=== PATIENT | female | born 1980 | race Caucasian/White ===

== ENCOUNTER 2018-01-24 05:51 | Inpatient (IN) | payer MEDICAID ==
[2018-01-24] MEDS ORDERED: AZITHROMYCIN INJ 500 MG VIAL IV ONE (06:01)
[2018-01-24] MEDS ORDERED: CEFAZOLIN 1 GM/D5W RTU 1 GM/50 ML RTUPB IV PRN (06:16)
[2018-01-24] MEDS ORDERED: AZITHROMYCIN 500 MG in DEXTROSE 5%-WATER 250 ML IV PRN (06:17)
[2018-01-24 06:28] LABS: APPEARANCE,URINE SLIGHTLY-CLOUDY; BILIRUBIN,URINE NEGATIVE (NEGATIVE); COLOR,URINE YELLOW; GLUCOSE, URINE NEGATIVE (NEGATIVE); KETONES,URINE NEGATIVE (NEGATIVE); LEUKOCYTE ESTERASE,URINE TRACE (NEGATIVE); NITRITE,URINE NEGATIVE (NEGATIVE); PROTEIN,URINE NEGATIVE (NEGATIVE); URINE SPECIFIC GRAVITY 1.011; UROBILINOGEN,URINE NEGATIVE mg/dL (<2.0)
[2018-01-24 06:45] LABS: ABSOLUTE EOSINOPHILS # (AUTO) 0.1 10^3/uL (0.0-0.6); ABSOLUTE NEUT (AUTO) 10.7 10^3/uL (1.7-8.2); BASOPHILS % (AUTO) 0.1 % (0-2); EOSINOPHILS % (AUTO) 0.7 % (0-6); HEMOGLOBIN 12.1 g/dL (12.0-15.5); LYMPHOCYTES % (AUTO) 20.2 % (13-45); MEAN CORPUSCULAR HEMOGLOBIN 31.4 pg (27.0-33.4); MEAN CORPUSCULAR HGB CONC 33.7 g/dL (32.0-36.0); MEAN CORPUSCULAR VOLUME 93 fl (80-97); MONOCYTES % (AUTO) 6.6 % (3-13); PLATELET COUNT 188 10^3/uL (150-450); RED BLOOD COUNT 3.86 10^6/uL (3.72-5.28); RED CELL DISTRIBUTION WIDTH 14.4 % (11.5-14.0); SEGMENTED NEUTROPHILS % (AUTO) 72.4 % (42-78); TOTAL CELLS COUNTED % (AUTO) 100 %; WHITE BLOOD COUNT 14.7 10^3/uL (4.0-10.5)
[2018-01-24 06:50] LABS: URINE AMPHETAMINES SCREEN NEGATIVE; URINE BARBITURATES SCREEN NEGATIVE; URINE BENZODIAZEPINES SCREEN NEGATIVE; URINE COCAINE SCREEN NEGATIVE; URINE MARIJUANA (THC) SCREEN NEGATIVE; URINE METHADONE SCREEN NEGATIVE; URINE PHENCYCLIDINE SCREEN NEGATIVE
[2018-01-24] MEDS ORDERED: OXYTOCIN 10 UNIT/ML VIAL ONE (07:20)
[2018-01-24] MEDS ORDERED: FENTANYL CITRATE INJ/PF 100 MCG/2 ML AMPUL ONE (07:20)
[2018-01-24] MEDS ORDERED: KETOROLAC TROMETHAMINE INJ/PF 30 MG/1 ML SDV ONE (07:20)
[2018-01-24] MEDS ORDERED: ACETAMINOPHEN 1,000 MG/100 ML RTUPB IV ONE (07:21)
[2018-01-24] MEDS ORDERED: MIDAZOLAM 2 MG/2 ML INJ ONE (07:21)
[2018-01-24] MEDS ORDERED: OXYTOCIN/NORMAL SALINE 20 UNIT/1,000 ML RTUINJ ONE (07:21)
[2018-01-24] MEDS ORDERED: ONDANSETRON HCL INJ/PF 4 MG/2 ML SDV ONE ×2 (07:21→09:22)
[2018-01-24] MEDS ORDERED: EPHEDRINE SULFATE INJ 50 MG/1 ML AMPULE ONE (07:21)
[2018-01-24] MEDS ORDERED: BUPIVACAINE HCL/DEX-WATER/PF 15 MG/2 ML AMPULE ONE (07:21)
[2018-01-24] MEDS ORDERED: FENTANYL CITRATE INJ/PF 100 MCG/2 ML AMPUL IV PRN ×3 (08:25)
[2018-01-24] MEDS ORDERED: ONDANSETRON HCL INJ/PF 4 MG/2 ML SDV IV PRN (08:25)
[2018-01-24] MEDS ORDERED: PROMETHAZINE HCL INJ 25 MG/1 ML VIAL IV PRN ×3 (08:25→08:49)
[2018-01-24] MEDS ORDERED: DIPHENHYDRAMINE HCL 50 MG/ML VIAL IV PRN (08:25)
[2018-01-24] MEDS ORDERED: MEPERIDINE HCL/PF INJ 25 MG/1 ML DISP.SYRIN IV PRN (08:25)
[2018-01-24] MEDS ORDERED: OXYCODONE-ACETAMINOPHEN 5-325 MG TABLET PO PRN ×3 (08:25→08:49)
[2018-01-24] MEDS ORDERED: DIPH/PERTUSS(ACELL)/TETANUS VAC/PF 0.5 ML SYR (>=10YO) IM PRN (08:49)
[2018-01-24] MEDS ORDERED: OXYTOCIN/NORMAL SALINE 20 UNIT/1,000 ML RTUINJ IV PRN (08:49)
[2018-01-24] MEDS ORDERED: SIMETHICONE 80 MG TAB.CHEW PO PRN (08:49)
[2018-01-24] MEDS ORDERED: ACETAMINOPHEN 325 MG TABLET PO PRN (08:49)
[2018-01-24] MEDS ORDERED: MEASLES,MUMPS&RUBELLA VACC/PF 0.5 ML VIAL SUBCUT PRN (08:49)
[2018-01-24] MEDS ORDERED: PHENYLEPHRINE HCL INJ/PF 10 MG/1 ML SDV ONE (08:57)
[2018-01-24] MEDS ORDERED: OXYCODONE-ACETAMINOPHEN 5-325 MG TABLET ONE (10:10)
[2018-01-24] MEDS: MORPHINE SULFATE 10 MG/ML INJ IM PRN ×3 (11:40→20:34)
--- NOTE | 2018-01-24 11:41 | OPERATIVE REPORT E ---
Operative Report NAME: CELESTINO EVERETT : 1980 AGE: 37Y DATE OF SURGERY: 01/24/2018 ROOM: 225 PREOPERATIVE DIAGNOSES: 1. IUP at term. 2. Repeat section. 3. Desires sterilization. POSTOPERATIVE DIAGNOSES: 1. IUP at term. 2. Repeat section. 3. Desires sterilization. PROCEDURES: 1. Repeat low transverse . 2. Bilateral tubal ligation using Filshie clips. SURGEON: Katherine PEACE M.D. ESTIMATED BLOOD LOSS: Less than 1000 mL. TISSUE REMOVED OR ALTERED: Placenta. ANESTHESIA: Spinal. DESCRIPTION OF PROCEDURE: The patient was placed in a supine position, rolled on her right side, prepped and draped in sterile fashion. A Pfannenstiel incision was made through an existing Pfannenstiel eschar incision and extended through the subcutaneous tissue and to the fascia. Multiple adhesions were encountered from the fascia to the omentum. There were carefully dissected so that the uterus could be visualized. Uterus nicked in midline standard bilaterally. Infant was then delivered through the uterine incision. Nose and mouth suctioned with bulb syringe. Cord was clamped. Infant was passed from the table. Placenta was closed in 2 layers using 0 Vicryl, first a running stitch and the second a Lembert stitch imbricating the first layer. Hemostasis was noted. The right fallopian tube was banded with Filshie clip in the mid portion. The procedure was begun on the left. Both tubes identified through the fimbria *------* banding. Hemostasis again was noted. The fascia was closed with 0 Vicryl. Skin was closed with subcu absorbable tana, then previously closed using interrupted 3-0 *------*. went to nursery, and her urine remained clear throughout the procedure. DICTATING PHYSICIAN: Katherine PEACE M.D. [id number] PHY#: [id number] ID: [id number] JOB#: [id number] ACCT: [id number] cc:Katherine PEACE M.D. >
[2018-01-24] MEDS: DOCUSATE SODIUM 100 MG CAPSULE PO SCH ×2 (11:56→17:35)
[2018-01-24] MEDS: PRENATAL VITAMIN W DHA CAPSULE PO SCH (11:56)
[2018-01-24] MEDS: OXYCODONE-ACETAMINOPHEN 5-325 MG TABLET PO PRN ×2 (13:20→17:35)
[2018-01-25] MEDS: MORPHINE SULFATE 10 MG/ML INJ IM PRN ×2 (01:06→05:46)
[2018-01-25 07:09] LABS: RED BLOOD COUNT 3.66 10^6/uL (3.72-5.28); WHITE BLOOD COUNT 11.4 10^3/uL (4.0-10.5)
[2018-01-25 07:10] LABS: HEMATOCRIT 34.1 % (36.0-47.0); HEMOGLOBIN 11.5 g/dL (12.0-15.5); MEAN CORPUSCULAR HEMOGLOBIN 31.5 pg (27.0-33.4); MEAN CORPUSCULAR HGB CONC 33.9 g/dL (32.0-36.0); MEAN CORPUSCULAR VOLUME 93 fl (80-97); PLATELET COUNT 140 10^3/uL (150-450); RED CELL DISTRIBUTION WIDTH 14.6 % (11.5-14.0)
[2018-01-25] MEDS: PRENATAL VITAMIN W DHA CAPSULE PO SCH (09:18)
[2018-01-25] MEDS: DOCUSATE SODIUM 100 MG CAPSULE PO SCH ×2 (09:18→17:48)
[2018-01-25] MEDS: OXYCODONE-ACETAMINOPHEN 5-325 MG TABLET PO PRN ×4 (09:34→23:34)
[2018-01-25] MEDS: IBUPROFEN 800 MG TABLET PO SCH (12:21)
--- NOTE | 2018-01-25 13:04 | PDOC PROGRESS REPORT ---
Subjective-OB Progress Note for:: 01/25/18 Subjective: Pt c/o pain in lower abd above c/s incision. Ambulatory, regular diet and no difficulty voiding. Reports light bleeding. Physical Exam (OB) Vital Signs: Temp Pulse Resp BP Pulse Ox 98.5 F 94 20 113/64 97 01/25/18 08:11 01/25/18 08:11 01/25/18 08:11 01/25/18 08:11 01/25/18 08:11 Intake & Output 01/24/18 01/25/18 01/26/18 06:59 06:59 06:59 Intake Total 550 Output Total 3425 Balance -2875 Weight 108.635 kg - PIH/Pre-Eclampsia DTR's: 1 + Clonus: Negative Headache: Absent Epigastric Pain: No Visual Changes: No - Dressing Removed: No Incision: Open Closure Type: Steri-Strips Note: abd is edematous, may apply heat, no s/sx of infection, WBC normal today - Bilateral Tubal Ligation Dressing Removed: No Site: Dressing - Lochia Lochia Amount: Moderate 25-50 ml Lochia Color: Rubra/Red - Abdomen Description: Tender, Firm Hernia Present: No Fundal Description: Firm Fundal Height: u/u - u/2 Objective-Diagnostic Laboratory: 01/25/18 06:24 01/25/18 06:24 WBC 11.4 H RBC 3.66 L Hgb 11.5 L Hct 34.1 L MCV 93 MCH 31.5 MCHC 33.9 RDW 14.6 H Plt Count 140 L Assessment and Plan(PN) - Assessment and Plan (1) Status post repeat low transverse section Is this a current diagnosis for this admission?: Yes - Time Spent with Patient Time with patient: Less than 15 minutes Medications reviewed and adjusted accordingly: Yes - Disposition Anticipated Discharge: Home Within: within 24 hours
[2018-01-25] MEDS: KETOROLAC TROMETHAMINE INJ/PF 30 MG/1 ML SDV IV SCH ×2 (14:58→21:12)
[2018-01-26] MEDS: IBUPROFEN 800 MG TABLET PO SCH ×4 (05:31→11:56)
[2018-01-26] MEDS: KETOROLAC TROMETHAMINE INJ/PF 30 MG/1 ML SDV IV SCH (05:38)
--- NOTE | 2018-01-26 09:38 | PDOC DISCHARGE SUMMARY ---
Final Diagnosis Discharge Date: 01/26/18 - Final Diagnosis (1) Status post repeat low transverse section Is this a current diagnosis for this admission?: Yes Discharge Data - Discharge Medication Home Medications: Duloxetine HCl [Cymbalta] 1 tab PO DAILY 08/18/15 Docusate Sodium [Colace 100 mg Capsule] 100 mg PO BID #30 capsule 08/20/15 Ferrous Sulfate 325 mg PO BID #60 tablet. 08/20/15 Ibuprofen [Motrin 800 mg Tablet] 800 mg PO Q6 #30 tablet 08/20/15 Oxycodone HCl/Acetaminophen [Percocet 5-325 mg Tablet] 2 tab PO Q4HP PRN #30 tablet 08/20/15 Reason(s) for Admission: Ceasarean Section-Repeat, Tubal Ligation - Diagnosis Test Laboratory: Temp Pulse Resp BP Pulse Ox 98.5 F 94 20 113/64 97 01/25/18 08:11 01/25/18 08:11 01/25/18 08:11 01/25/18 08:11 01/25/18 08:11 01/24/18 01/24/18 01/25/18 05:55 06:25 06:24 RBC 3.86 3.66 L Hgb 12.1 11.5 L Hct 36.0 34.1 L Urine Opiates Screen NEGATIVE - Discharge information/Instructions Discharge Activity: Balance Activity w/Rest, No Lifting Over 10 Pounds, No Lifting/Push/Pulling, Pelvic Rest, No tub bath Discharge Diet: Regular Disposition: HOME, SELF-CARE Follow up with: [facility] in: 4, Days
[2018-01-26] MEDS: PRENATAL VITAMIN W DHA CAPSULE PO SCH (09:41)
[2018-01-26] MEDS: OXYCODONE-ACETAMINOPHEN 5-325 MG TABLET PO PRN (09:42)
[2018-01-26] MEDS: DOCUSATE SODIUM 100 MG CAPSULE PO SCH (09:42)
[2018-01-26 11:51] VITALS: BP 114/65
== END 2018-01-26 14:05 | disposition home or self-care (01) | DRG 766 ==
LOC: 2S 05:51
PROVIDERS: ADMIT Obstetrics & Gynecology Gynecology; ATTEND Obstetrics & Gynecology Gynecology
PROC: 0UL70CZ Occlusion of Bilateral Fallopian Tubes with Extraluminal Device, Open Approach (ICD-10-PCS; 2018-01-24)
PROC: 10D00Z1 Extraction of Products of Conception, Low, Open Approach (ICD-10-PCS; principal; 2018-01-24 07:45)
DX: O34.211 Maternal care for low transverse scar from previous cesarean delivery (principal); O24.429 Gestational diabetes mellitus in childbirth, unspecified control; N85.8 Other specified noninflammatory disorders of uterus; O99.344 Other mental disorders complicating childbirth; F41.8 Other specified anxiety disorders; Z3A.00 Weeks of gestation of pregnancy not specified; Z37.0 Single live birth; Z30.2 Encounter for sterilization
CPT/HCPCS: 1961; 36415; 59025; 80307; 81001; 82962; 85025; 85027; 86850; 86900; 86901; 94799; J0131; J0456; J1885; J2250; J2270; J2370; J2405; J2590; J3010; J3490

== ENCOUNTER 2018-03-19 15:49 | Emergency (ER) | payer MEDICAID ==
[2018-03-19] MEDS ORDERED: DEXAMETHASONE SOD PHOS INJ 10 MG/1 ML VIAL IM ONE (17:10)
[2018-03-19] MEDS ORDERED: KETOROLAC TROMETHAMINE 60 MG/2 ML SDV IM ONE (17:10)
[2018-03-19] MEDS ORDERED: LIDOCAINE 5% (700 MG) TRANSDERMAL ADH..PATCH TP ONE (17:13)
--- NOTE | 2018-03-19 17:37 | RADIOLOGY REPORT (SQ) ---
EXAM DESCRIPTION: L SPINE WHOLE COMPLETED DATE/TIME: 03/19/2018 5:28 pm REASON FOR STUDY: low back pain COMPARISON: 02/09/2012 NUMBER OF VIEWS: Five views including obliques. TECHNIQUE: AP, lateral, oblique, and sacral radiographic images acquired of the lumbar spine. LIMITATIONS: None. FINDINGS: MINERALIZATION: Normal. SEGMENTATION: Normal. No transitional anatomy. ALIGNMENT: Normal. VERTEBRAE: Maintained height. No fracture or worrisome bone lesion. DISCS: Preserved height. No significant osteophytes or end plate irregularity. POSTERIOR ELEMENTS: Pedicles and facets are intact. No pars defect or posterior arch defects. HARDWARE: None in the spine. PARASPINAL SOFT TISSUES: Normal. PELVIS: Intact as visualized. No fractures or worrisome bone lesions. SI joints intact. OTHER: No other significant finding. IMPRESSION: NORMAL 5 VIEW LUMBAR SPINE. TECHNICAL DOCUMENTATION: JOB ID: [id number] [employer]- All Rights Reserved Reading location - IP/workstation name: [email or web address]
--- NOTE | 2018-03-19 17:48 | ER Document Report ---
ED Neck/Back Problem - General Chief Complaint: Back Pain Stated Complaint: LOWER BACK PAIN Time Seen by Provider: 03/19/18 16:56 Mode of Arrival: Ambulatory Information source: Patient Notes: 37-year-old female presented to ED for complaint of chronic back pain. She states is gotten worse since her and January. She states she has had pain since she was a teenager. She states it was worse during her and after her delivery. She states she is never had this x-ray of her spine and she just wanted to make sure there was not any problems with this. Patient is alert and oriented respirations regular and unlabored speaking in full sentences. Patient is morbidly obese. TRAVEL OUTSIDE OF THE [place] IN LAST 30 DAYS: No - HPI Patient complains to provider of: Lower back Onset: Other - Since she was a teenager Onset: Chronic Timing: Still present Quality of pain: Achy, Sharp Severity: Severe Pain Level: 5 Recent injury: No Associated symptoms: Like prior neck/back pain, Lower back pain. denies: Incontinence, Motor loss, Numbness/tingling, Radiation to arm, Radiation to chest, Radiation to leg, Sensory loss, Sweaty, Unable to urinate, Upper back pain Exacerbated by: Movement of neck, Sitting position Relieved by: Nothing Similar symptoms previously: Yes Recently seen / treated by doctor: No - Related Data Allergies/Adverse Reactions: clarithromycin [From Biaxin] Allergy (Intermediate, Verified 03/19/18 15:52) VOMITING clindamycin [Clindamycin] Allergy (Intermediate, Verified 03/19/18 15:52) rash erythromycin base [Erythromycin Base] Allergy (Intermediate, Verified 03/19/18 15:52) rash Penicillins Allergy (Intermediate, Verified 03/19/18 15:52) rash Past Medical History - General Information source: Patient - Social History Smoking Status: Current Every Day Smoker Cigarette use (# per day): Yes - Pack per day Chew tobacco use (# tins/day): No - 4 minutes Smoking Education Provided: Yes Frequency of alcohol use: None Drug Abuse: None Occupation: [employer] Lives with: Family Family History: Reviewed & Not Pertinent Patient has suicidal ideation: No Patient has homicidal ideation: No - Past Medical History Cardiac Medical History: Reports: None Pulmonary Medical History: Reports: None EENT Medical History: Reports: None Neurological Medical History: Reports: None Endocrine Medical History: Reports: None Renal/ Medical History: Reports: None Malignancy Medical History: Reports: None GI Medical History: Reports: Hx Gastroesophageal Reflux Disease Musculoskeletal Medical History: Reports Other - Chronic back pain Skin Medical History: Reports None Psychiatric Medical History: Reports: Hx Depression Traumatic Medical History: Reports: None Infectious Medical History: Reports: None Past Surgical History: Reports: Hx Section - X2, Hx Cholecystectomy, Hx Tonsillectomy, Other - Immunizations Immunizations up to date: Yes Hx Diphtheria, Pertussis, Tetanus Vaccination: Yes Review of Systems - Review of Systems Constitutional: No symptoms reported EENT: No symptoms reported Cardiovascular: No symptoms reported Respiratory: No symptoms reported Gastrointestinal: No symptoms reported Genitourinary: No symptoms reported Female Genitourinary: No symptoms reported Musculoskeletal: Back pain, Muscle pain, Muscle stiffness Skin: No symptoms reported Hematologic/Lymphatic: No symptoms reported Neurological/Psychological: No symptoms reported -: Yes All other systems reviewed and negative Physical Exam - Vital signs Vitals: Temp Pulse Resp BP Pulse Ox 97.9 F 97 15 129/76 H 96 03/19/18 15:54 03/19/18 15:54 03/19/18 15:54 03/19/18 15:54 03/19/18 15:54 Interpretation: Normal - General General appearance: Appears well, Alert - HEENT Head: Normocephalic, Atraumatic Eyes: Normal Pupils: PERRL - Respiratory Respiratory status: No respiratory distress Chest status: Nontender Breath sounds: Normal Chest palpation: Normal - Cardiovascular Rhythm: Regular Heart sounds: Normal auscultation Murmur: No - Abdominal Inspection: Normal Distension: No distension Bowel sounds: Normal Tenderness: Nontender Organomegaly: No organomegaly - Back Back: Normal, Tender. No: Deformity/step-off, CVA tenderness, Vertebra tenderness, Scars, Scoliosis, Wounds - Extremities General upper extremity: Normal inspection, Nontender, Normal color, Normal ROM , Normal temperature General lower extremity: Normal inspection, Nontender, Normal color, Normal ROM , Normal temperature, Normal weight bearing. No: Yudy's sign - Neurological Neuro grossly intact: Yes Cognition: Normal Orientation: AAOx4 [place] Coma Scale Eye Opening: Spontaneous [place] Coma Scale Verbal: Oriented Daniel Coma Scale Motor: Obeys Commands [place] Coma Scale Total: 15 Speech: Normal Motor strength normal: LUE, RUE, LLE, RLE Sensory: Normal - Psychological Associated symptoms: Normal affect, Normal mood - Skin Skin Temperature: Warm Skin Moisture: Dry Skin Color: Normal Course - Re-evaluation Re-evalutation: 03/19/18 21:42 After performing a Medical Screening Examination, I estimate there is LOW risk for EXPANDING OR RUPTURED ABDOMINAL AORTIC ANEURYSM, CAUDA EQUINA SYNDROME, EPIDURAL MASS LESION, or HERNIATED DISK CAUSING SEVERE SPINAL STENOSIS, thus I consider the discharge disposition reasonable. I have reevaluated this patient multiple times and no significant life threatening changes are noted. The patient and I have discussed the diagnosis and risks, and we agree with discharging home and close follow-up. We also discussed returning to the Emergency Department immediately if new or worsening symptoms occur with the understanding that symptoms and presentations can change. We have discussed the symptoms which are most concerning (e.g., saddle anesthesia, urinary or bowel incontinence or retention, changing or worsening pain) that necessitate immediate return. - Vital Signs Vital signs: Temp Pulse Resp BP Pulse Ox 98.1 F 81 16 116/74 97 03/19/18 17:57 03/19/18 17:57 03/19/18 17:57 03/19/18 17:57 03/19/18 17:57 - Diagnostic Test Radiology reviewed: Image reviewed, Reports reviewed Discharge - Discharge Clinical Impression: Chronic low back pain Qualifiers: Back pain laterality: bilateral Sciatica presence: without sciatica Qualified Code(s): M54.5 - Low back pain; G89.29 - Other chronic pain; G89.29 - Other chronic pain Condition: Stable Disposition: HOME, SELF-CARE Additional Instructions: Chronic Back Pain Chronic back pain (pain persisting longer than three months) is a common problem. A medical evaluation can look for herniated disc, arthritis, osteoporosis, tumors, and infections. But at least half the time, there's no obvious treatable cause. Anxiety and depression tend to worsen back pain. Ibuprofen or other anti-inflammatory medicine can help. A heating pad, used for 15-20 minutes at a time, can ease pain. For this type of back pain, narcotic medicines should be avoided. Muscle relaxers are rarely helpful unless you're having spasms. Activity is important. Find an aerobic exercise program that your back can tolerate. Too much rest makes back pain worse. Specific back exercises are usually prescribed to strengthen the back and abdominal muscles. Often, a physical therapist can help. Avoid heavy lifting, working while bent over, or standing with both knees straight. Most back pain patients do better with a firm mattress. If new symptoms of a "herniated disc" (radiation of pain, numbness, or tingling down the back of the leg or weakness in the leg) occur, you should be re-examined. ICE PACKS: Apply ice packs frequently against the painful area. Many different schedules are recommended, such as "20 minutes on, 20 minutes off" or "one hour ice, two hours rest." If you need to work, you may need to go longer between ice treatments. You should plan to have the area ice packed AT LEAST one fourth of the time. The ice should be applied over the wrap, tape, or splint, or over a layer of cloth -- not directly against the skin. Some ice bags have a built-in cloth and can be put directly on the skin. WARM PACKS: After approximately two days, apply gentle heat (such as a heating pad or hot water bottle) for about 20 to 30 minutes about every two hours -- at least four times daily. Warmth and elevation will help you make a more rapid recovery , and will ease the pain considerably. Do not use HOT heat, and never apply heat for longer than 30 minutes. The continuous heat can invisibly damage skin and muscles -- even when no burn is seen on the surface. Damaged muscles can make you MORE sore. Toradol Injection You have been given an injection of ketorolac tromethamine (Toradol). This is an excellent, safe drug for pain control. It also has potent antiinflammatory action. You should have significant pain relief within about one hour. Toradol is not addicting and is non-sedating. It does not interfere with driving or work. Call or return if you develop itching, hives, shortness of breath, or rash. STEROID MEDICATION: You have been given an injection of medicine of the cortisone/steroid class. This medication is used to control inflammation or allergy. It is often continued as a pill for a short period of time, until the acute process subsides. There are usually no side effects from short-term use of cortisone-like medications. Some persons feel an increased sense of well-being and are not sleepy at bedtime. Long-term use of cortisone medications is best avoided, unless required for a severe condition. If your condition does not remit, or relapses after the course of corticosteroid medication, you should consult your physician. Stretching Exercises for the Back The physician has recommended that you begin stretching exercises for your back. These are often used even while the back is painful. However, you should notify the physician if the activities seem to increase your pain. PELVIC TILT: Lie flat on your back with knees bent. Tighten your stomach and buttock muscles so it flattens your lower back against the floor. Hold 10 seconds. Repeat 10 times, twice daily. KNEE RAISE: Lying on the back with knees bent, raise one knee to your chest, then the other. Hold both knees against the chest 10 seconds, then lower one knee at a time. Repeat 10 times, twice daily. PARTIAL TRUNK RAISE: Lie face down, arms at your sides. Keeping your waist on the floor, use your arms raise your chest up. Support yourself on your elbows for 30 seconds. Repeat twice daily, increasing the time to two minutes as you recover. FOLLOW-UP CARE: If you have been referred to a physician for follow-up care, call the physician s office for an appointment as you were instructed or within the next two days. If you experience worsening or a significant change in your symptoms, notify the physician immediately or return to the Emergency Department at any time for re-evaluation. Prescriptions: Naproxen 500 mg PO BIDP PRN #14 tablet PRN Reason: Forms: Elevated Blood Pressure, Smoking Cessation Education Referrals: SMITA PEACE MD [Primary Care Provider] - Follow up as needed
[2018-03-19 17:58] VITALS: BP 116/74
== END 2018-03-19 17:57 | disposition home or self-care (01) ==
LOC: ER 15:49
DX: M54.5 Low back pain (principal); G89.29 Other chronic pain; Z98.890 Other specified postprocedural states; E66.01 Morbid (severe) obesity due to excess calories; F17.210 Nicotine dependence, cigarettes, uncomplicated; Z68.41 Body mass index [BMI] 40.0-44.9, adult; Z88.1 Allergy status to other antibiotic agents; Z88.0 Allergy status to penicillin
CPT/HCPCS: 99406; 99283; 96372; 72110; J1885; J3490; J1100

== ENCOUNTER → 2018-06-06 | Outpatient (CLI) | payer MEDICAID ==
--- NOTE | 2018-06-06 08:24 | RADIOLOGY REPORT (SQ) ---
EXAM DESCRIPTION: U/S ABDOMEN LIMITED W/O DOP COMPLETED DATE/TIME: 06/06/2018 8:11 am REASON FOR STUDY: BILATERAL LOWER QUAD ABD MASS (R19.04) R19.04 LEFT LOWER QUADRANT ABDOMINAL SWELL ING, MASS AND LUMP COMPARISON: None. TECHNIQUE: Dynamic and static grayscale images acquired of the abdomen and recorded on PACS. Additio nal selected color Doppler and spectral images recorded. Focused exam over the anterior abdominal wa ll in the area of pain LIMITATIONS: None. FINDINGS: Patient indicates pain and palpable abnormality over the midline lower anterior abdominal wall suprapubic region Ultrasound of this area demonstrates a moderate size ventral hernia containing peristalsing bowel loo ps. Abdominal wall defect appears to measure 10 to 12 cm in greatest diameter. IMPRESSION: Lower anterior abdominal wall ventral hernia containing peristalsing bowel loops TECHNICAL DOCUMENTATION: JOB ID: [id number] [employer]- All Rights Reserved Reading location - IP/workstation name: [email or web address]
== END ==
LOC: RAD 07:25
PROVIDERS: ATTEND Nurse Practitioner Family
DX: K43.6 Other and unspecified ventral hernia with obstruction, without gangrene (principal)
CPT/HCPCS: 76705

== ENCOUNTER 2018-06-12 17:14 | Emergency (ER) | payer MEDICAID ==
[2018-06-12] MEDS ORDERED: ONDANSETRON 4 MG TAB.RAPDIS PO ONE (19:50)
--- NOTE | 2018-06-12 19:52 | ER Document Report ---
ED Medical Screen (RME) - General Chief Complaint: Abdominal Pain Stated Complaint: ABDOMINAL PAIN Time Seen by Provider: 06/12/18 19:50 Notes: 37-year-old female with history of ventral hernia that comes to the emergency department for chief complaint of pain, periodic vomiting, she states she was sent for an ultrasound but the hernia was too big to evaluate, she states she was supposed to get a CAT scan but this has not been set up yet. She smokes, she has had cholecystectomy and 2 C-sections. She has been able to eat and has moved her bowels today. She only vomited once today. TRAVEL OUTSIDE OF THE [place] IN LAST 30 DAYS: No - Related Data Allergies/Adverse Reactions: clarithromycin [From Biaxin] Allergy (Intermediate, Verified 03/19/18 15:52) VOMITING clindamycin [Clindamycin] Allergy (Intermediate, Verified 03/19/18 15:52) rash erythromycin base [Erythromycin Base] Allergy (Intermediate, Verified 03/19/18 15:52) rash Penicillins Allergy (Intermediate, Verified 03/19/18 15:52) rash Past Medical History Renal/ Medical History: Denies: Hx Peritoneal Dialysis GI Medical History: Reports: Hx Gastroesophageal Reflux Disease Psychiatric Medical History: Reports: Hx Depression Past Surgical History: Reports: Hx Section - X2, Hx Cholecystectomy, Hx Tonsillectomy, Other - Immunizations Immunizations up to date: Yes Hx Diphtheria, Pertussis, Tetanus Vaccination: Yes History of Influenza Vaccine for 03/2017 - 08/2017 Season: No Physical Exam - Vital signs Vitals: Temp Pulse Resp BP Pulse Ox 98.7 F 90 18 140/86 H 96 06/12/18 17:20 06/12/18 17:20 06/12/18 17:20 06/12/18 17:20 06/12/18 17:20 - Abdominal Tenderness: Other - Large lower ventral hernia, the area is not rigid or erythematous, there is mild generalized tenderness over the area in limited sitting position exam. Course - Re-evaluation Re-evalutation: I have greeted and performed a rapid initial assessment of this patient. A comprehensive ED assessment and evaluation of the patient, analysis of test results and completion of the medical decision making process will be conducted by additional ED providers. - Vital Signs Vital signs: Temp Pulse Resp BP Pulse Ox 98.7 F 90 18 140/86 H 96 06/12/18 17:20 06/12/18 17:20 06/12/18 17:20 06/12/18 17:20 06/12/18 17:20 Doctor's Discharge - Discharge Referrals: ANTONELLA LEE FNP-C [Primary Care Provider] - Follow up as needed
[2018-06-12 20:20] LABS: APPEARANCE,URINE SLIGHTLY-CLOUDY; BILIRUBIN,URINE NEGATIVE (NEGATIVE); COLOR,URINE YELLOW; GLUCOSE, URINE NEGATIVE (NEGATIVE); KETONES,URINE NEGATIVE (NEGATIVE); LEUKOCYTE ESTERASE,URINE NEGATIVE (NEGATIVE); NITRITE,URINE NEGATIVE (NEGATIVE); PROTEIN,URINE NEGATIVE (NEGATIVE); URINE SPECIFIC GRAVITY 1.014; UROBILINOGEN,URINE NEGATIVE mg/dL (<2.0)
[2018-06-12] MEDS ORDERED: MORPHINE SULFATE 10 MG/ML INJ IV ONE (20:36)
--- NOTE | 2018-06-12 20:40 | ER Document Report ---
ED General - General Chief Complaint: Abdominal Pain Stated Complaint: ABDOMINAL PAIN Time Seen by Provider: 06/12/18 19:50 TRAVEL OUTSIDE OF THE [place] IN LAST 30 DAYS: No - HPI Notes: Patient is a 37-year-old female that presents to the emergency department for chief complaint of ventral hernia and melanotic stools. Patient reports she has had a ventral hernia for the last 4 months since her section. She has been seen as an outpatient by the [facility] who ordered an ultrasound last week. She states that the instrument technologist told her that she would need a CT scan for further evaluation, she has not obtain the scan yet. Today she states she started having a large amount of melanotic stools. The hernia has significantly increased in pain to the point that she has vomited 2 times. She denies any coffee-ground emesis. She denies any fevers or chills. She has not taken any medication at home for her pain. Past Medical History: Gestational diabetes, anxiety Past Surgical History: Social History: Denies drugs alcohol and tobacco Family History: Reviewed and noncontributory for presenting illness Allergies: Reviewed, see documented allergy list. REVIEW OF SYSTEMS: CONSTITUTIONAL : No fever No chills No diaphoresis No recent illness EENT: No vision changes No congestion No sore throat CARDIOVASCULAR: No chest pain No palpitations RESPIRATORY: No shortness of breath No cough No difficulty breathing GASTROINTESTINAL: abdominal pain nausea vomiting No diarrhea Melanotic stool GENITOURINARY: No dysuria No hematuria No difficulty urinating MUSCULOSKELETAL: No back pain No leg pain No arm pain SKIN: No rashes No lesions LYMPHATIC: No swollen, enlarged glands. NEUROLOGICAL: No lightheadedness No headache No weakness No paresthesias PSYCHIATRIC: No anxiety No depression PHYSICAL EXAMINATION: Vital signs reviewed, nursing noted reviewed. GENERAL: Well-appearing, well-nourished and in no acute distress. HEAD: Atraumatic, normocephalic. EYES: Eyes appear normal, extraocular movements intact, sclera anicteric, conjunctiva are normal. ENT: nares patent, oropharynx clear without exudates. Moist mucous membranes. NECK: Normal range of motion, supple without lymphadenopathy LUNGS: Breath sounds clear to auscultation bilaterally and equal. No wheezes rales or rhonchi. HEART: Regular rate and rhythm without murmurs ABDOMEN: Soft, large ventral hernia just inferior to umbilicus that is tender to palpation and not reducible. No rebound, guarding, or rigidity. No masses appreciated. EXTREMITIES: Nontender, good range of motion, no pitting or edema. NEUROLOGICAL: No focal neurological deficits. Moves all extremities spontaneously Motor and sensory grossly intact on exam. PSYCH: Normal mood, normal affect. SKIN: Warm, Dry, normal turgor, no rashes or lesions noted on exposed skin - Related Data Allergies/Adverse Reactions: clarithromycin [From Biaxin] Allergy (Intermediate, Verified 03/19/18 15:52) VOMITING clindamycin [Clindamycin] Allergy (Intermediate, Verified 03/19/18 15:52) rash erythromycin base [Erythromycin Base] Allergy (Intermediate, Verified 03/19/18 15:52) rash Penicillins Allergy (Intermediate, Verified 03/19/18 15:52) rash Past Medical History - Social History Smoking Status: Current Every Day Smoker Family History: Reviewed & Not Pertinent Patient has suicidal ideation: No Patient has homicidal ideation: No Renal/ Medical History: Denies: Hx Peritoneal Dialysis GI Medical History: Reports: Hx Gastroesophageal Reflux Disease Psychiatric Medical History: Reports: Hx Depression Past Surgical History: Reports: Hx Section - X2, Hx Cholecystectomy, Hx Tonsillectomy, Other - Immunizations Immunizations up to date: Yes Hx Diphtheria, Pertussis, Tetanus Vaccination: Yes Physical Exam - Vital signs Vitals: Temp Pulse Resp BP Pulse Ox 98.7 F 90 18 140/86 H 96 06/12/18 17:20 06/12/18 17:20 06/12/18 17:20 06/12/18 17:20 06/12/18 17:20 Course - Re-evaluation Re-evalutation: 06/12/18 23:25 Vitals reviewed. Nursing notes reviewed. Patient's lab work shows a mild elevation of her lipase however she is not having any epigastric tenderness and there is no pancreatitis on CT scan. The remainder of her blood work is unrem arkable. CT shows a large diastases rectus containing bowel. Patient has a negative lactate. There is no strangulation or incarceration. I discussed her results with Dr. Andrew who recommends outpatient follow-up. She will be referred to general surgery for further management if her pain continues. She is stable at discharge. Laboratory 06/12/18 06/12/18 06/12/18 19:55 20:36 20:36 WBC 6.4 RBC 4.77 Hgb 14.5 Hct 42.9 MCV 90 MCH 30.5 MCHC 33.9 RDW 15.6 H Plt Count 246 Seg Neutrophils % 54.1 Lymphocytes % 35.0 Monocytes % 6.7 Eosinophils % 3.9 Basophils % 0.3 Absolute Neutrophils 3.5 Absolute Lymphocytes 2.2 Absolute Monocytes 0.4 Absolute Eosinophils 0.2 Absolute Basophils 0.0 PT INR Sodium 139.7 Potassium 4.2 Chloride 107 Carbon Dioxide 28 Anion Gap 5 BUN 12 Creatinine 0.68 Est GFR ( Amer) > 60 Est GFR (Non-Af Amer) > 60 Glucose 87 Lactic Acid Calcium 9.1 Total Bilirubin 0.3 Direct Bilirubin 0.2 Neonat Total Bilirubin Not Reportable Neonat Direct Bilirubin Not Reportable Neonat Indirect Bili Not Reportable AST 23 ALT 32 Alkaline Phosphatase 75 Total Protein 6.3 Albumin 3.8 Lipase 329.1 H Urine Color YELLOW Urine Appearance SLIGHTLY-CLOUDY Urine pH 5.0 Ur Specific Tinnie 1.014 Urine Protein NEGATIVE Urine Glucose (UA) NEGATIVE Urine Ketones NEGATIVE Urine Blood NEGATIVE Urine Nitrite NEGATIVE Urine Bilirubin NEGATIVE Urine Urobilinogen NEGATIVE Ur Leukocyte Esterase NEGATIVE Urine WBC (Auto) 7 Urine RBC (Auto) 1 Urine Bacteria (Auto) TRACE Squamous Epi Cells Auto 1 Urine Mucus (Auto) RARE Urine Ascorbic Acid NEGATIVE Urine HCG, Qual NEGATIVE 06/12/18 06/12/18 20:36 22:30 WBC RBC Hgb Hct MCV MCH MCHC RDW Plt Count Seg Neutrophils % Lymphocytes % Monocytes % Eosinophils % Basophils % Absolute Neutrophils Absolute Lymphocytes Absolute Monocytes Absolute Eosinophils Absolute Basophils PT 13.3 INR 0.96 Sodium Potassium Chloride Carbon Dioxide Anion Gap BUN Creatinine Est GFR ( Amer) Est GFR (Non-Af Amer) Glucose Lactic Acid < 0.5 L Calcium Total Bilirubin Direct Bilirubin Neonat Total Bilirubin Neonat Direct Bilirubin Neonat Indirect Bili AST ALT Alkaline Phosphatase Total Protein Albumin Lipase Urine Color Urine Appearance Urine pH Ur Specific Tinnie Urine Protein Urine Glucose (UA) Urine Ketones Urine Blood Urine Nitrite Urine Bilirubin Urine Urobilinogen Ur Leukocyte Esterase Urine WBC (Auto) Urine RBC (Auto) Urine Bacteria (Auto) Squamous Epi Cells Auto Urine Mucus (Auto) Urine Ascorbic Acid Urine HCG, Qual Abdomen/Pelvis CT 06/12/18 00:00 IMPRESSION: Diastases recti containing loops of large and small bowel, as well as the appendix. However no evidence for obstruction. Negative for acute intra-abdominal/pelvic process. TECHNICAL DOCUMENTATION: Quality ID # 436: Final reports with documentation of one or more dose reduction techniques (e.g., Automated exposure control, adjustment of the mA and/or kV according to patient size, use of iterative reconstruction technique) copyright 2011 [employer]- All Rights Reserved - Vital Signs Vital signs: Temp Pulse Resp BP Pulse Ox 98.7 F 90 18 140/86 H 96 06/12/18 17:20 06/12/18 17:20 06/12/18 17:20 06/12/18 17:20 06/12/18 17:20 - Laboratory Result Diagrams: 06/12/18 20:36 06/12/18 20:36 Laboratory results interpreted by me: 06/12/18 06/12/18 06/12/18 20:36 20:36 22:30 RDW 15.6 H Lactic Acid < 0.5 L Lipase 329.1 H Discharge - Discharge Clinical Impression: Diastasis of rectus abdominis Abdominal pain Qualifiers: Abdominal location: generalized Qualified Code(s): R10.84 - Generalized abdominal pain Condition: Stable Disposition: HOME, SELF-CARE Instructions: Abdominal Pain ([facility]) Additional Instructions: Please return to the emergency department if you have any worsening, or concern of your symptoms. Please return to the emergency department if you develop chest pain, difficulty breathing, severe abdominal pain, or ongoing vomiting. Please follow-up with your primary care physician in 2-3 days and any other recommended physicians. If prescribed, take all medications as directed. If you have any questions or concerns do not hesitate to return the emergency department for evaluation. You have diastases rectus which is a separation of your abdominal muscles, if this area continues to be painful he may require surgery to repair it. You do not require surgery today. Please follow-up with either the general surgeon provided or one referred to you by your primary care doctor for reevaluation. Referrals: ANTONELLA LEE FNP-C [Primary Care Provider] - Follow up in 3-5 days ROSINA ANDREW MD [ACTIVE STAFF] - Follow up as needed
[2018-06-12 20:52] LABS: ABSOLUTE EOSINOPHILS # (AUTO) 0.2 10^3/uL (0.0-0.6); ABSOLUTE LYMPHOCYTES (AUTO) 2.2 10^3/uL (0.5-4.7); ABSOLUTE MONOCYTES (AUTO) 0.4 10^3/uL (0.1-1.4); ABSOLUTE NEUT (AUTO) 3.5 10^3/uL (1.7-8.2); BASOPHILS % (AUTO) 0.3 % (0-2); EOSINOPHILS % (AUTO) 3.9 % (0-6); HEMATOCRIT 42.9 % (36.0-47.0); HEMOGLOBIN 14.5 g/dL (12.0-15.5); MEAN CORPUSCULAR HEMOGLOBIN 30.5 pg (27.0-33.4); MEAN CORPUSCULAR HGB CONC 33.9 g/dL (32.0-36.0); MEAN CORPUSCULAR VOLUME 90 fl (80-97); MONOCYTES % (AUTO) 6.7 % (3-13); PLATELET COUNT 246 10^3/uL (150-450); RED BLOOD COUNT 4.77 10^6/uL (3.72-5.28); RED CELL DISTRIBUTION WIDTH 15.6 % (11.5-14.0); SEGMENTED NEUTROPHILS % (AUTO) 54.1 % (42-78); TOTAL CELLS COUNTED % (AUTO) 100 %; WHITE BLOOD COUNT 6.4 10^3/uL (4.0-10.5)
[2018-06-12 21:06] LABS: INTERNATIONAL RATION (INR) 0.96; PROTHROMBIN TIME 13.3 SEC (11.4-15.4)
[2018-06-12 21:16] LABS: ALANINE AMINOTRANSFERASE 32 U/L (9-52); ALBUMIN 3.8 g/dL (3.5-5.0); ALKALINE PHOSPHATASE 75 U/L (38-126); ANION GAP 5 (5-19); ASPARTATE AMINO TRANSFERASE 23 U/L (14-36); BILIRUBIN,DIRECT 0.2 mg/dL (0.0-0.4); BILIRUBIN,TOTAL 0.3 mg/dL (0.2-1.3); BLOOD UREA NITROGEN 12 mg/dL (7-20); CALCIUM 9.1 mg/dL (8.4-10.2); CARBON DIOXIDE 28 mmol/L (22-30); CHLORIDE 107 mmol/L (98-107); GLUCOSE 87 mg/dL (75-110); LIPASE 329.1 U/L (23-300); POTASSIUM 4.2 mmol/L (3.6-5.0); SODIUM 139.7 mmol/L (137-145); TOTAL PROTEIN 6.3 g/dL (6.3-8.2)
--- NOTE | 2018-06-12 23:05 | RADIOLOGY REPORT (SQ) ---
EXAM DESCRIPTION: CT ABDOMEN PELVIS WITH IV CONTRAST COMPLETED DATE/TME: 06/12/2018 00:00 CLINICAL HISTORY: 37 years, Female, abd pain, vomiting, eval hernia COMPARISON: Ultrasound 06/06/2018. TECHNIQUE: 370 Images stored on PACS. All CT scanners at this facility use dose modulation, iterative reconstruction, and/or weight based dosing when appropriate to reduce radiation dose to as low as reasonably achievable (ALARA). [facility]: Dose Right [facility]: CareDose [facility]: Dose Right [facility]: Teradose 4D [facility]: [employer] LIMITATIONS: None. FINDINGS: Limited evaluation of the lung bases is unremarkable. Osseous structures are grossly intact. The liver, spleen, adrenal glands, pancreas, kidneys are unremarkable. Status post cholecystectomy. Diastases recti. Contrast-filled loops of large and small bowel extend through the midline anterior abdominal wall defect/diastases however no evidence for obstruction. No free air or free fluid. Tubal ligation clips. The cecum and appendix extends through the anterior abdominal wall defect, and have an unremarkable appearance. IMPRESSION: Diastases recti containing loops of large and small bowel, as well as the appendix. However no evidence for obstruction. Negative for acute intra-abdominal/pelvic process. TECHNICAL DOCUMENTATION: Quality ID # 436: Final reports with documentation of one or more dose reduction techniques (e.g., Automated exposure control, adjustment of the mA and/or kV according to patient size, use of iterative reconstruction technique) copyright 2011 [employer]- All Rights Reserved
[2018-06-13 00:01] VITALS: BP 134/82
== END 2018-06-13 00:01 | disposition home or self-care (01) ==
LOC: ER 17:14
DX: M62.08 Separation of muscle (nontraumatic), other site (principal); K43.9 Ventral hernia without obstruction or gangrene; R10.84 Generalized abdominal pain; R11.2 Nausea with vomiting, unspecified; K92.1 Melena; R74.8 Abnormal levels of other serum enzymes; F17.200 Nicotine dependence, unspecified, uncomplicated; Z98.890 Other specified postprocedural states; Z88.1 Allergy status to other antibiotic agents; Z88.0 Allergy status to penicillin; Z90.49 Acquired absence of other specified parts of digestive tract
CPT/HCPCS: 99284; 96374; 86900; 86901; 36415; 86850; 83690; 85025; 85610; 81025; 80053; 81001; 83605; 74177; S0119; J2270

== ENCOUNTER 2018-11-03 09:50 | Inpatient (IN) | payer MEDICAID ==
[2018-10-27 09:48] LABS: ABSOLUTE EOSINOPHILS # (AUTO) 0.1 10^3/uL (0.0-0.6); ABSOLUTE LYMPHOCYTES (AUTO) 1.9 10^3/uL (0.5-4.7); ABSOLUTE MONOCYTES (AUTO) 0.7 10^3/uL (0.1-1.4); ABSOLUTE NEUT (AUTO) 4.7 10^3/uL (1.7-8.2); BASOPHILS % (AUTO) 0.1 % (0-2); EOSINOPHILS % (AUTO) 1.7 % (0-6); HEMATOCRIT 45.9 % (36.0-47.0); HEMOGLOBIN 15.3 g/dL (12.0-15.5); LYMPHOCYTES % (AUTO) 25.5 % (13-45); MEAN CORPUSCULAR HEMOGLOBIN 29.8 pg (27.0-33.4); MEAN CORPUSCULAR HGB CONC 33.3 g/dL (32.0-36.0); MEAN CORPUSCULAR VOLUME 90 fl (80-97); MONOCYTES % (AUTO) 9.3 % (3-13); PLATELET COUNT 238 10^3/uL (150-450); RED BLOOD COUNT 5.12 10^6/uL (3.72-5.28); RED CELL DISTRIBUTION WIDTH 13.4 % (11.5-14.0); SEGMENTED NEUTROPHILS % (AUTO) 63.4 % (42-78); TOTAL CELLS COUNTED % (AUTO) 100 %; WHITE BLOOD COUNT 7.4 10^3/uL (4.0-10.5)
[2018-10-27 10:13] LABS: ANION GAP 12 (5-19); BLOOD UREA NITROGEN 16 mg/dL (7-20); CALCIUM 9.6 mg/dL (8.4-10.2); CARBON DIOXIDE 24 mmol/L (22-30); CHLORIDE 104 mmol/L (98-107); GLUCOSE 103 mg/dL (75-110); SODIUM 140.3 mmol/L (137-145)
[~2018-11-03 09:50] MED LIST: BUPIVACAINE HCL 0.25% /EPINEPHRINE INJ/PF 30 ML SDV ONE; LACTATED RINGERS 1000 ML IV PRN; LIDOCAINE 0.5% INJ-PF (5 MG/ML) 50 ML SDV SUBCUT PRN; VANCOMYCIN HCL 1,000 MG in DEXTROSE 5%-WATER 250 ML IV PRN
[2018-11-03] MEDS ORDERED: FENTANYL CITRATE INJ/PF 100 MCG/2 ML AMPUL ONE (12:21)
[2018-11-03] MEDS ORDERED: ONDANSETRON HCL INJ/PF 4 MG/2 ML SDV ONE (12:21)
[2018-11-03] MEDS ORDERED: MIDAZOLAM 2 MG/2 ML INJ ONE (12:21)
[2018-11-03] MEDS ORDERED: DEXAMETHASONE SOD PHOSPHATE INJ 4 MG/1 ML VIAL ONE (12:21)
[2018-11-03] MEDS ORDERED: PROPOFOL INJ 200 MG/20 ML VIAL IV ONE (12:22)
[2018-11-03] MEDS ORDERED: METHYLENE BLUE 50 MG/10 ML AMPULE ONE (13:12)
[2018-11-03] MEDS ORDERED: PROMETHAZINE HCL INJ 25 MG/1 ML VIAL IV PRN ×2 (13:17)
[2018-11-03] MEDS ORDERED: MEPERIDINE HCL/PF INJ 25 MG/1 ML DISP.SYRIN IV PRN (13:17)
[2018-11-03] MEDS ORDERED: DIPHENHYDRAMINE HCL 50 MG/ML VIAL IV PRN (13:17)
[2018-11-03] MEDS ORDERED: FENTANYL CITRATE INJ/PF 100 MCG/2 ML AMPUL IV PRN ×3 (13:17)
[2018-11-03] MEDS ORDERED: MORPHINE SULFATE 10 MG/ML INJ IV PRN ×2 (13:17→16:41)
[2018-11-03] MEDS ORDERED: ONDANSETRON HCL INJ/PF 4 MG/2 ML SDV IV PRN (13:17)
[2018-11-03] MEDS ORDERED: OXYCODONE-ACETAMINOPHEN 5-325 MG TABLET PO PRN ×2 (13:17)
[2018-11-03] MEDS ORDERED: GLYCOPYRROLATE 1 MG/5 ML SYRINGE ONE (13:25)
[2018-11-03] MEDS ORDERED: NEOSTIGMINE METHYLSULFATE 10 MG/10 ML VIAL ONE (13:25)
[2018-11-03] MEDS ORDERED: VECURONIUM BROMIDE INJ 10 MG VIAL IV ONE (13:25)
[2018-11-03] MEDS ORDERED: SUCCINYLCHOLINE CHLORIDE INJ 200 MG/10 ML VIAL ONE (13:25)
[2018-11-03] MEDS ORDERED: MORPHINE SULFATE 10 MG/ML INJ ONE (13:42)
[2018-11-03] MEDS ORDERED: SUGAMMADEX SODIUM 200 MG/2 ML SDV IV ONE (14:33)
--- NOTE | 2018-11-03 16:39 | Operative Report ---
Nonrecallable Operative Report DATE OF SURGERY: 11/03/18 PREOPERATIVE DIAGNOSIS: ventral hernia and abdominal pannus POSTOPERATIVE DIAGNOSIS: ventral hernia and abdominal pannus OPERATION: ventral hernia repair and panniculectomy SURGEON: MYRNA PAULINO ANESTHESIA: GA TISSUE REMOVED OR ALTERED: abdominal pannus COMPLICATIONS: none ESTIMATED BLOOD LOSS: 200cc INTRAOPERATIVE FINDINGS: see dictation PROCEDURE: see dictation
[2018-11-03] MEDS ORDERED: ACETAMINOPHEN 1,000 MG/100 ML RTUPB IV ONE (16:49)
[2018-11-03] MEDS: HYDROMORPHONE HCL INJ/PF 2 MG/ML AMPULE ONE ×2 (16:50→17:05)
[2018-11-03] MEDS ORDERED: MORPHINE SULFATE 60 MG/60 ML RTUINJ IV PRN (17:24)
[2018-11-03] MEDS ORDERED: ACETAMINOPHEN INJ/PF 1000 MG/100 ML SDV IV SCH (18:00)
[2018-11-03] MEDS: PROMETHAZINE HCL INJ 25 MG/1 ML VIAL IV PRN (20:40)
[2018-11-03] MEDS: POTASSI CL 30 MEQ/D5-1/2NS 1L 30 MEQ/1,000 ML RTUINJ IV PRN (20:43)
[2018-11-03] MEDS: FAMOTIDINE INJ/PF 20 MG/2 ML SDV IV SCH (21:56)
[2018-11-04] MEDS: ACETAMINOPHEN 1,000 MG/100 ML RTUPB IV SCH ×4 (01:29→17:33)
[2018-11-04] MEDS: POTASSI CL 30 MEQ/D5-1/2NS 1L 30 MEQ/1,000 ML RTUINJ IV PRN ×3 (05:11→23:00)
[2018-11-04 06:21] LABS: ABSOLUTE LYMPHOCYTES (AUTO) 1.9 10^3/uL (0.5-4.7); ABSOLUTE MONOCYTES (AUTO) 1.2 10^3/uL (0.1-1.4); BASOPHILS % (AUTO) 0.1 % (0-2); EOSINOPHILS % (AUTO) 0.1 % (0-6); HEMATOCRIT 39.7 % (36.0-47.0); LYMPHOCYTES % (AUTO) 13.6 % (13-45); MEAN CORPUSCULAR HEMOGLOBIN 29.8 pg (27.0-33.4); MEAN CORPUSCULAR HGB CONC 32.7 g/dL (32.0-36.0); MEAN CORPUSCULAR VOLUME 91 fl (80-97); MONOCYTES % (AUTO) 8.2 % (3-13); PLATELET COUNT 241 10^3/uL (150-450); RED BLOOD COUNT 4.35 10^6/uL (3.72-5.28); TOTAL CELLS COUNTED % (AUTO) 100 %; WHITE BLOOD COUNT 14.1 10^3/uL (4.0-10.5)
[2018-11-04 06:42] LABS: ANION GAP 9 (5-19); BLOOD UREA NITROGEN 7 mg/dL (7-20); CALCIUM 8.4 mg/dL (8.4-10.2); CARBON DIOXIDE 24 mmol/L (22-30); CHLORIDE 107 mmol/L (98-107); GLUCOSE 131 mg/dL (75-110); POTASSIUM 4.9 mmol/L (3.6-5.0); SODIUM 139.5 mmol/L (137-145)
[2018-11-04] MEDS: PROMETHAZINE HCL INJ 25 MG/1 ML VIAL IV PRN ×2 (08:41→22:37)
--- NOTE | 2018-11-04 08:49 | PDOC PROGRESS REPORT ---
Subjective Progress Note for:: 11/04/18 Subjective:: feels ok, pain controlled with playground director Reason For Visit: K43.9 VENTRAL HERNIA WITHOUT OBSTRUCTION OR GANGRE Physical Exam Vital Signs: Temp Pulse Resp BP Pulse Ox 97.7 F 89 20 123/79 93 11/04/18 07:56 11/04/18 07:56 11/04/18 07:56 11/04/18 07:56 11/04/18 07:56 Intake & Output 11/03/18 11/04/18 11/05/18 06:59 06:59 06:59 Intake Total 6650 Output Total 915 430 Balance 5735 -430 Weight 98.1 kg General appearance: PRESENT: no acute distress Head exam: PRESENT: normocephalic Eye exam: PRESENT: EOMI Mouth exam: PRESENT: moist Respiratory exam: PRESENT: clear to auscultation bobby Cardiovascular exam: PRESENT: RRR Pulses: PRESENT: normal radial pulses, normal femoral pulses GI/Abdominal exam: PRESENT: soft, other - dresssing dry, ameena's with min op Rectal exam: PRESENT: deferred Gentrourinary exam: PRESENT: indwelling catheter Musculoskeletal exam: PRESENT: full ROM Neurological exam: PRESENT: alert, awake, oriented to person, oriented to place Psychiatric exam: PRESENT: appropriate affect Skin exam: PRESENT: dry Results Laboratory Results: 11/04/18 05:41 11/04/18 05:41 11/04/18 11/04/18 05:41 05:41 WBC 14.1 H RBC 4.35 Hgb 13.0 Hct 39.7 MCV 91 MCH 29.8 MCHC 32.7 RDW 14.0 Plt Count 241 Seg Neutrophils % 78.0 Lymphocytes % 13.6 Monocytes % 8.2 Eosinophils % 0.1 Basophils % 0.1 Absolute Neutrophils 11.0 H Absolute Lymphocytes 1.9 Absolute Monocytes 1.2 Absolute Eosinophils 0.0 Absolute Basophils 0.0 Sodium 139.5 Potassium 4.9 Chloride 107 Carbon Dioxide 24 Anion Gap 9 BUN 7 Creatinine 0.68 Est GFR ( Amer) > 60 Est GFR (Non-Af Amer) > 60 Glucose 131 H Calcium 8.4 Assessment & Plan - Plan Summary Plan Summary: s/p ventral hernia repair and panniculectomy doing well this am pain controlled with playground director has not yet been out of bed yudy clear liquids labs reviewd plan- out of bed today cont velez 1 more day start lovonox incentive spirometer
--- NOTE | 2018-11-04 09:04 | OPERATIVE REPORT E ---
Operative Report NAME: CELESTINO EVERETT : 1980 AGE: 37Y DATE OF SURGERY: 11/03/2018 ROOM: 208 PREOPERATIVE DIAGNOSIS: Abdominal wall hernia with abdominal pannus. POSTOPERATIVE DIAGNOSIS: Abdominal wall hernia with abdominal pannus. OPERATION: Panniculectomy with abdominal wall hernia repair. SURGEON: MYRNA PAULINO M.D. FILM PROCESSING SHIFT SUPERVISOR: JAMEEL Caceres who was present during the entire operation for assist in wound retraction and wound closure. ANESTHESIA: General. PROCEDURE: The patient was brought to the operating room in an awake and alert and stable condition, placed on the operating table in supine position, induced under general anesthesia, and intubated. The abdomen was prepped and draped in the usual sterile manner for the procedure. After an appropriate time out and site verification, a curvilinear incision was made from the anterior superior iliac spine on the right and carried over across the pubic symphysis towards the left anterior superior iliac spine. We then began our dissection with Bovie cautery and came through the subcutaneous tissue and fat through Macy fascia to the anterior abdominal wall with Bovie cautery to raise our lower skin flap. We continued this cephalad with the Bovie cautery until we reached the hernia sac, which was large, approximately 4 cm in diameter. We incised the hernia sac and kept this with the superior skin flap, identifying the hernia defect which was about 4 to 6 cm in diameter. We continued our dissection up towards the umbilicus. When we reached the umbilical stalk we made a counterincision on the anterior abdominal skin circumferentially around the umbilicus with a 15 blade. We freed the umbilical skin and stalk from the anterior flap with Bovie cautery and allowed this to remain on the abdominal wall. We continued raising our superior skin flap, dissecting the fat and Macy fascia off the anterior abdominal fascia all the way up to the costal margin, leaving the lateral pedicles intact to maintain vascularity of the abdominal skin. When we reached the costal margin and the xiphoid, we then placed the patient in a flat position and using a Pentangi clamp we stretched the skin flap down towards the pubic symphysis and identified the amount of skin that can be removed. It reached up to the umbilical skin defect. We then made an elliptical incision again from the anterior superior iliac spine across the level of the umbilicus from the left side to the right side and excised that section of skin and fat. We removed that. We then retracted the skin flap up towards the xiphoid to gain good access to the anterior abdominal wall. At this point we addressed the abdominal wall hernia. We completely excised the scar and sac from the abdominal hernia defect and after this we identified a 6 cm diameter defect. It was easily closed with interrupted #1 PDS suture with sutures placed in an interrupted Smead-Marquis fashion. Once we closed the defect we then imbricated the anterior abdominal wall, creating a second layer of fascial closure over the defect and above the umbilicus with interrupted #1 PDS sutures. This imbricated the anterior abdominal wall from the xiphoid all the way to the pubic symphysis. Once this was accomplished we then irrigated and made sure hemostasis was intact. We then used a piece of GORE BIO-A mesh which we tacked onto the anterior abdominal wall over the defect with interrupted #1 Maxon sutures circumferentially around the mesh as an onlay graft. Once this was accomplished we then created a skin defect for the newly placed umbilicus and approximated the anterior flap of abdominal wall skin to the perineal skin with interrupted 2-0 Vicryl sutures for the Macy fascia. We then placed two David-Higuera drains underneath the skin flap and brought them out to the lateral edges of the wound and brought the umbilicus through the newly created skin defect and tacked that to the anterior abdominal skin with interrupted 2-0 nylon sutures temporarily as we closed the lower abdominal wound. We continued to close the lower abdominal wound with the interrupted 2-0 Vicryl sutures in Macy fascia and then a second layer of 3-0 Vicryl sutures in the subcutaneous tissue. At this point we then closed the skin with a running 3-0 Biosyn suture placed subcuticularly. We then removed the nylon sutures from the umbilicus and closed that with a running 3-0 Biosyn suture. At the termination of this we used Steri-Strips and placed those over the wound, and a sterile dressing was applied which completed the procedure. Estimated blood loss was 200 mL. Sponge and needle counts were correct x2. The patient was awakened in the operating room, extubated, and transferred to recovery in stable condition. DICTATING PHYSICIAN: MYRNA PAULINO M.D. [id number] PHY#: [id number] ID: [id number] JOB#: [id number] ACCT: [id number] cc:MYRNA PAULINO M.D. >
[2018-11-04] MEDS: FAMOTIDINE INJ/PF 20 MG/2 ML SDV IV SCH ×2 (10:18→22:00)
[2018-11-04] MEDS: ENOXAPARIN SODIUM INJ 40 MG/0.4 ML DISP.SYRIN SUBCUT SCH (10:18)
[2018-11-05] MEDS: ACETAMINOPHEN 1,000 MG/100 ML RTUPB IV SCH ×4 (00:30→17:04)
[2018-11-05] MEDS ORDERED: ACETAMINOPHEN 1,000 MG/100 ML RTUPB IV ONE (06:02)
[2018-11-05 06:32] LABS: ABSOLUTE EOSINOPHILS # (AUTO) 0.1 10^3/uL (0.0-0.6); ABSOLUTE LYMPHOCYTES (AUTO) 1.9 10^3/uL (0.5-4.7); ABSOLUTE MONOCYTES (AUTO) 0.9 10^3/uL (0.1-1.4); ABSOLUTE NEUT (AUTO) 6.6 10^3/uL (1.7-8.2); BASOPHILS % (AUTO) 0.1 % (0-2); EOSINOPHILS % (AUTO) 0.6 % (0-6); HEMATOCRIT 38.7 % (36.0-47.0); HEMOGLOBIN 12.9 g/dL (12.0-15.5); LYMPHOCYTES % (AUTO) 20.1 % (13-45); MEAN CORPUSCULAR HEMOGLOBIN 30.5 pg (27.0-33.4); MEAN CORPUSCULAR HGB CONC 33.3 g/dL (32.0-36.0); MEAN CORPUSCULAR VOLUME 92 fl (80-97); MONOCYTES % (AUTO) 9.2 % (3-13); PLATELET COUNT 219 10^3/uL (150-450); RED BLOOD COUNT 4.22 10^6/uL (3.72-5.28); RED CELL DISTRIBUTION WIDTH 13.9 % (11.5-14.0); TOTAL CELLS COUNTED % (AUTO) 100 %; WHITE BLOOD COUNT 9.5 10^3/uL (4.0-10.5)
[2018-11-05 07:00] LABS: ANION GAP 8 (5-19); BLOOD UREA NITROGEN 5 mg/dL (7-20); CARBON DIOXIDE 25 mmol/L (22-30); CHLORIDE 105 mmol/L (98-107); GLUCOSE 97 mg/dL (75-110); POTASSIUM 4.3 mmol/L (3.6-5.0); SODIUM 138.2 mmol/L (137-145)
--- NOTE | 2018-11-05 07:49 | PDOC PROGRESS REPORT ---
Subjective Progress Note for:: 11/05/18 Subjective:: ventral hernia repair and abdominal wall reconstruction with excision of pannus Reason For Visit: K43.9 VENTRAL HERNIA WITHOUT OBSTRUCTION OR GANGRE Physical Exam Vital Signs: Temp Pulse Resp BP Pulse Ox 98.1 F 99 18 109/72 98 11/05/18 04:20 11/05/18 04:20 11/05/18 04:20 11/05/18 04:20 11/05/18 04:20 Intake & Output 11/04/18 11/05/18 11/06/18 06:59 06:59 06:59 Intake Total 6650 3620 Output Total 915 8095 Balance 5735 905 Weight 98.1 kg 99.2 kg General appearance: PRESENT: no acute distress Head exam: PRESENT: normocephalic Eye exam: PRESENT: EOMI Ear exam: PRESENT: normal external ear exam Mouth exam: PRESENT: moist Neck exam: PRESENT: full ROM Respiratory exam: PRESENT: clear to auscultation bobby Cardiovascular exam: PRESENT: RRR Pulses: PRESENT: normal radial pulses, normal femoral pulses Vascular exam: PRESENT: normal capillary refill GI/Abdominal exam: PRESENT: soft, other - dressings dry, ameena drains serosanginous Rectal exam: PRESENT: deferred Extremities exam: PRESENT: full ROM Musculoskeletal exam: PRESENT: full ROM Neurological exam: PRESENT: alert, oriented to person, oriented to place Psychiatric exam: PRESENT: appropriate affect Skin exam: PRESENT: dry Results Laboratory Results: 11/05/18 05:20 11/05/18 05:20 11/05/18 11/05/18 05:20 05:20 WBC 9.5 RBC 4.22 Hgb 12.9 Hct 38.7 MCV 92 MCH 30.5 MCHC 33.3 RDW 13.9 Plt Count 219 Seg Neutrophils % 70.0 Lymphocytes % 20.1 Monocytes % 9.2 Eosinophils % 0.6 Basophils % 0.1 Absolute Neutrophils 6.6 Absolute Lymphocytes 1.9 Absolute Monocytes 0.9 Absolute Eosinophils 0.1 Absolute Basophils 0.0 Sodium 138.2 Potassium 4.3 Chloride 105 Carbon Dioxide 25 Anion Gap 8 BUN 5 L Creatinine 0.67 Est GFR ( Amer) > 60 Est GFR (Non-Af Amer) > 60 Glucose 97 Calcium 8.0 L Assessment & Plan - Diagnosis (2) Abdominal pain Qualifiers: Abdominal location: unspecified location Qualified Code(s): R10.9 - Unspecified abdominal pain Is this a current diagnosis for this admission?: Yes - Inpatient Certification Medical Necessity: Need Close Monitoring Due to Risk of Patient Decompensation - pt is s/p extensive abdominal wall reconstruction with mesh and excision of excess abdominal wall pannus. hernia was incarcerated and although had only a 4-6cm defect, it was incarcerated and repair required abd wall reconstruction iwth mesh., Need for Pain Control - Plan Summary Plan Summary: pt still with significant pain,on radar scientist morphine will remove velez today add toradol and start decreasing radar scientist dose increase activity start full liquids.
[2018-11-05] MEDS ORDERED: KETOROLAC TROMETHAMINE INJ/PF 30 MG/1 ML SDV IV SCH (08:00)
[2018-11-05] MEDS: ENOXAPARIN SODIUM INJ 40 MG/0.4 ML DISP.SYRIN SUBCUT SCH (09:18)
[2018-11-05] MEDS: FAMOTIDINE INJ/PF 20 MG/2 ML SDV IV SCH ×2 (09:19→22:10)
[2018-11-05] MEDS: POTASSI CL 30 MEQ/D5-1/2NS 1L 30 MEQ/1,000 ML RTUINJ IV PRN (15:06)
[2018-11-06] MEDS: ACETAMINOPHEN 1,000 MG/100 ML RTUPB IV SCH ×4 (00:08→17:34)
[2018-11-06] MEDS: POTASSI CL 30 MEQ/D5-1/2NS 1L 30 MEQ/1,000 ML RTUINJ IV PRN ×2 (04:38→18:09)
[2018-11-06] MEDS ORDERED: ACETAMINOPHEN 1,000 MG/100 ML RTUPB IV ONE (05:37)
[2018-11-06 06:59] LABS: ABSOLUTE EOSINOPHILS # (AUTO) 0.2 10^3/uL (0.0-0.6); ABSOLUTE LYMPHOCYTES (AUTO) 1.8 10^3/uL (0.5-4.7); ABSOLUTE MONOCYTES (AUTO) 0.7 10^3/uL (0.1-1.4); ABSOLUTE NEUT (AUTO) 3.8 10^3/uL (1.7-8.2); EOSINOPHILS % (AUTO) 3.4 % (0-6); HEMATOCRIT 35.4 % (36.0-47.0); HEMOGLOBIN 11.7 g/dL (12.0-15.5); LYMPHOCYTES % (AUTO) 27.8 % (13-45); MEAN CORPUSCULAR HEMOGLOBIN 30.3 pg (27.0-33.4); MEAN CORPUSCULAR VOLUME 92 fl (80-97); MONOCYTES % (AUTO) 10.1 % (3-13); PLATELET COUNT 194 10^3/uL (150-450); RED BLOOD COUNT 3.86 10^6/uL (3.72-5.28); RED CELL DISTRIBUTION WIDTH 13.8 % (11.5-14.0); SEGMENTED NEUTROPHILS % (AUTO) 58.7 % (42-78); TOTAL CELLS COUNTED % (AUTO) 100 %; WHITE BLOOD COUNT 6.6 10^3/uL (4.0-10.5)
[2018-11-06 07:15] LABS: ANION GAP 5 (5-19); BLOOD UREA NITROGEN 4 mg/dL (7-20); CALCIUM 8.4 mg/dL (8.4-10.2); CARBON DIOXIDE 29 mmol/L (22-30); CHLORIDE 105 mmol/L (98-107); GLUCOSE 94 mg/dL (75-110); POTASSIUM 4.3 mmol/L (3.6-5.0)
--- NOTE | 2018-11-06 08:37 | PDOC PROGRESS REPORT ---
Subjective Progress Note for:: 11/06/18 Reason For Visit: K43.9 VENTRAL HERNIA WITHOUT OBSTRUCTION OR GANGRE Physical Exam Vital Signs: Temp Pulse Resp BP Pulse Ox 98.7 F 97 18 124/73 94 11/06/18 04:00 11/06/18 04:00 11/06/18 05:00 11/06/18 04:00 11/06/18 04:00 Intake & Output 11/05/18 11/06/18 11/07/18 06:59 06:59 06:59 Intake Total 3720 3990 Output Total 2715 965 110 Balance 1005 3025 -110 Weight 99.2 kg 103.2 kg General appearance: PRESENT: no acute distress Head exam: PRESENT: normocephalic Eye exam: PRESENT: EOMI Ear exam: PRESENT: normal external ear exam Mouth exam: PRESENT: moist Neck exam: PRESENT: full ROM Respiratory exam: PRESENT: clear to auscultation bobby Cardiovascular exam: PRESENT: RRR Pulses: PRESENT: normal radial pulses, normal femoral pulses GI/Abdominal exam: PRESENT: soft, other - wound examined, dressing removed wound clean dry umbilicus well perfused min ameena op Rectal exam: PRESENT: deferred Extremities exam: PRESENT: full ROM Musculoskeletal exam: PRESENT: full ROM Neurological exam: PRESENT: alert, awake, oriented to person, oriented to place Psychiatric exam: PRESENT: appropriate affect Skin exam: PRESENT: dry Results Laboratory Results: 11/06/18 06:18 11/06/18 06:18 11/06/18 11/06/18 06:18 06:18 WBC 6.6 RBC 3.86 Hgb 11.7 L Hct 35.4 L MCV 92 MCH 30.3 MCHC 33.0 RDW 13.8 Plt Count 194 Seg Neutrophils % 58.7 Lymphocytes % 27.8 Monocytes % 10.1 Eosinophils % 3.4 Basophils % 0.0 Absolute Neutrophils 3.8 Absolute Lymphocytes 1.8 Absolute Monocytes 0.7 Absolute Eosinophils 0.2 Absolute Basophils 0.0 Sodium 139.0 Potassium 4.3 Chloride 105 Carbon Dioxide 29 Anion Gap 5 BUN 4 L Creatinine 0.72 Est GFR ( Amer) > 60 Est GFR (Non-Af Amer) > 60 Glucose 94 Calcium 8.4 Assessment & Plan - Diagnosis (2) Abdominal pain Qualifiers: Abdominal location: unspecified location Qualified Code(s): R10.9 - Unspecified abdominal pain Is this a current diagnosis for this admission?: Yes - Plan Summary Plan Summary: doing well wound clean dry passing stool will 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
[2018-11-06] MEDS: FAMOTIDINE INJ/PF 20 MG/2 ML SDV IV SCH ×2 (10:22→21:56)
[2018-11-06] MEDS: ENOXAPARIN SODIUM INJ 40 MG/0.4 ML DISP.SYRIN SUBCUT SCH (10:22)
[2018-11-06] MEDS ORDERED: KETOROLAC TROMETHAMINE INJ/PF 30 MG/1 ML SDV IV PRN (10:48)
[2018-11-06] MEDS: OXYCODONE-ACETAMINOPHEN 5-325 MG TABLET PO PRN ×2 (12:57→21:56)
[2018-11-07] MEDS: ACETAMINOPHEN 1,000 MG/100 ML RTUPB IV SCH (00:55)
[2018-11-07] MEDS: POTASSI CL 30 MEQ/D5-1/2NS 1L 30 MEQ/1,000 ML RTUINJ IV PRN (03:34)
[2018-11-07] MEDS: OXYCODONE-ACETAMINOPHEN 5-325 MG TABLET PO PRN ×2 (04:05→09:28)
[2018-11-07 06:44] LABS: ABSOLUTE EOSINOPHILS # (AUTO) 0.4 10^3/uL (0.0-0.6); ABSOLUTE LYMPHOCYTES (AUTO) 1.6 10^3/uL (0.5-4.7); ABSOLUTE MONOCYTES (AUTO) 0.6 10^3/uL (0.1-1.4); ABSOLUTE NEUT (AUTO) 3.4 10^3/uL (1.7-8.2); HEMATOCRIT 33.7 % (36.0-47.0); HEMOGLOBIN 11.3 g/dL (12.0-15.5); MEAN CORPUSCULAR HEMOGLOBIN 30.6 pg (27.0-33.4); MEAN CORPUSCULAR HGB CONC 33.5 g/dL (32.0-36.0); MEAN CORPUSCULAR VOLUME 91 fl (80-97); MONOCYTES % (AUTO) 9.6 % (3-13); PLATELET COUNT 201 10^3/uL (150-450); RED BLOOD COUNT 3.69 10^6/uL (3.72-5.28); RED CELL DISTRIBUTION WIDTH 13.7 % (11.5-14.0); SEGMENTED NEUTROPHILS % (AUTO) 57.4 % (42-78); TOTAL CELLS COUNTED % (AUTO) 100 %; WHITE BLOOD COUNT 5.9 10^3/uL (4.0-10.5)
[2018-11-07 06:52] LABS: ANION GAP 6 (5-19); BLOOD UREA NITROGEN 9 mg/dL (7-20); CALCIUM 8.3 mg/dL (8.4-10.2); CARBON DIOXIDE 25 mmol/L (22-30); CHLORIDE 110 mmol/L (98-107); GLUCOSE 129 mg/dL (75-110); POTASSIUM 4.3 mmol/L (3.6-5.0); SODIUM 140.6 mmol/L (137-145)
[2018-11-07] MEDS: ENOXAPARIN SODIUM INJ 40 MG/0.4 ML DISP.SYRIN SUBCUT SCH (09:26)
[2018-11-07] MEDS: FAMOTIDINE INJ/PF 20 MG/2 ML SDV IV SCH (09:26)
--- NOTE | 2018-11-07 10:14 | PDOC PROGRESS REPORT ---
Subjective Progress Note for:: 11/07/18 Reason For Visit: K43.9 VENTRAL HERNIA WITHOUT OBSTRUCTION OR GANGRE Physical Exam Vital Signs: Temp Pulse Resp BP Pulse Ox 98.1 F 97 16 121/73 96 11/07/18 07:27 11/07/18 07:27 11/07/18 07:27 11/07/18 07:27 11/07/18 07:27 Intake & Output 11/06/18 11/07/18 11/08/18 06:59 06:59 06:59 Intake Total 4090 1942 Output Total 965 270 Balance 3125 1672 Weight 103.2 kg 101.8 kg General appearance: PRESENT: no acute distress Head exam: PRESENT: normocephalic Eye exam: PRESENT: EOMI Ear exam: PRESENT: normal external ear exam Mouth exam: PRESENT: moist Neck exam: PRESENT: full ROM Cardiovascular exam: PRESENT: RRR Pulses: PRESENT: normal radial pulses, normal femoral pulses Vascular exam: PRESENT: normal capillary refill GI/Abdominal exam: PRESENT: soft, other - wound clean, dry. with ameena's in place Rectal exam: PRESENT: deferred Extremities exam: PRESENT: full ROM Musculoskeletal exam: PRESENT: full ROM Neurological exam: PRESENT: alert, awake, oriented to person, oriented to place Psychiatric exam: PRESENT: appropriate affect Skin exam: PRESENT: dry Results Laboratory Results: 11/07/18 06:05 11/07/18 06:05 11/07/18 11/07/18 06:05 06:05 WBC 5.9 RBC 3.69 L Hgb 11.3 L Hct 33.7 L MCV 91 MCH 30.6 MCHC 33.5 RDW 13.7 Plt Count 201 Seg Neutrophils % 57.4 Lymphocytes % 27.0 Monocytes % 9.6 Eosinophils % 6.0 Basophils % 0.0 Absolute Neutrophils 3.4 Absolute Lymphocytes 1.6 Absolute Monocytes 0.6 Absolute Eosinophils 0.4 Absolute Basophils 0.0 Sodium 140.6 Potassium 4.3 Chloride 110 H Carbon Dioxide 25 Anion Gap 6 BUN 9 Creatinine 0.62 Est GFR ( Amer) > 60 Est GFR (Non-Af Amer) > 60 Glucose 129 H Calcium 8.3 L Assessment & Plan - Diagnosis (2) Abdominal pain Qualifiers: Abdominal location: unspecified location Qualified Code(s): R10.9 - Unspecified abdominal pain Is this a current diagnosis for this admission?: Yes - Plan Summary Plan Summary: doing well after panniculectomy and ventral hernia repair yudy diet wound clean dry ready for dc home
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
[2018-11-07 10:50] VITALS: BP 124/73
== END 2018-11-07 11:05 | disposition home or self-care (01) | DRG 354 ==
LOC: INOR 09:50 → 2N 18:30
PROVIDERS: ADMIT Surgery; ATTEND Surgery
PROC: 0WBF0ZZ Excision of Abdominal Wall, Open Approach (ICD-10-PCS; 2018-11-03)
PROC: 0WUF0JZ Supplement Abdominal Wall with Synthetic Substitute, Open Approach (ICD-10-PCS; principal; 2018-11-03 12:00)
DX: K43.9 Ventral hernia without obstruction or gangrene (principal); Z68.41 Body mass index [BMI] 40.0-44.9, adult; E65 Localized adiposity; F41.8 Other specified anxiety disorders; E66.01 Morbid (severe) obesity due to excess calories; F17.211 Nicotine dependence, cigarettes, in remission
CPT/HCPCS: 36415; 80048; 81025; 832; 85025; 88302; 88305; C1781; J0131; J0330; J1100; J1170; J1650; J1885; J2250; J2270; J2405; J2550; J2704; J2710; J3010; J3370; J3480; J3490; J7060; Q9968; S0028